=== PATIENT | male | born 1975 | race American Indian/Alaskan Native ===

== ENCOUNTER 2018-10-16 19:11 | Emergency (ER) | payer OTHER ==
[2018-10-16 19:33] VITALS: BP 155/89
--- NOTE | 2018-10-16 20:09 | Emergency Department Report ---
Chief Complaint: Abdominal Pain Stated Complaint: HEADACHE/DIZZINESS Time Seen by Provider: 10/16/18 20:05 - HPI History of Present Illness: pt presents with left flank pain that started today describes as a sharp pain he has associated lightheadedness no N/V, no urinary sx never had a kidney stone previously no PMHx no medications (+)smoker non drinker no drug use - Exam Vital Signs: Vital Signs 10/16/18 19:25 Temperature 98.2 F Pulse Rate 80 Respiratory 18 Rate Blood Pressure 155/89 O2 Sat by Pulse 97 Oximetry MSE screening note: Focused history and physical exam performed. Due to findings the following was ordered: UA, labs, Ct abd/pelvis without contrast ED Disposition for MSE Condition: Stable
[2018-10-16 22:10] LABS: Hematocrit 40.6 % (35.5-45.6); Hemoglobin 14.1 gm/dl (11.8-15.2); Mean Corpuscular HGB Conc 35 % (32-34); Mean Corpuscular Volume 79 fl (84-94); Platelet Count 377 K/mm3 (140-440); Red Blood Count 5.13 M/mm3 (3.65-5.03)
[2018-10-16 22:11] LABS: Eosinophils % (Auto) 2.5 % (0.0-4.3); Monocytes % (Auto) 9.9 % (0.0-7.3)
[2018-10-16 22:12] LABS: Basophils # (Auto) 0.1 K/mm3 (0.0-0.1); Basophils % (Auto) 0.1 % (0.0-1.8); Eosinophils # (Auto) 0.2 K/mm3 (0.0-0.4); Lymphocytes # (Auto) 2.9 K/mm3 (1.2-5.4); Monocytes # (Auto) 0.8 K/mm3 (0.0-0.8)
--- NOTE | 2018-10-16 22:48 | Cat Scan Report ---
PROCEDURE: CT ABDOMEN PELVIS WO CON TECHNIQUE: Computerized axial tomography of the abdomen and pelvis was performed without intravenous contrast. This study is performed without intravascular contrast material and its sensitivity for ab dominal and pelvic pathology, including neoplasms, inflammation, abscess, free fluid, thrombosis, art erial dissection and infarction, is reduced compared with a contrast enhanced study. CT DOSE LENGTH PRODUCT: mGycm HISTORY: right flank pain COMPARISONS: None . FINDINGS: Liver, spleen, pancreas and adrenal glands are within normal limits. Bilateral kidneys demonstrate no rmal size without calculi or hydronephrosis. A small exophytic cyst is noted involving the upper port ion left kidney measuring 0.9 cm. Urinary bladder is partially filled with normal outlines. Aorta is of normal caliber. There is no free fluid or free air. Gallbladder is contracted. Small bowel loops a re within normal limits. Multiple colonic diverticula are noted without evidence of diverticulitis. A ppendix is normal. Vertebral height is normal. IMPRESSION: No acute intra-abdominal or pelvic pathology. A small cystic lesion of left kidney cannot be further evaluated on this noncontrast study. This document is electronically signed by Jose Kim MD., October 16 2018 10:46:13 PM ET
[2018-10-16 23:04] LABS: Bilirubin,Urine Negative (Negative); Blood,Urine Negative (Negative); Color,Urine Yellow (Yellow)
[2018-10-16 23:05] LABS: Protein,Urine <15 mg/dL mg/dL (Negative); WBC,Urine < 1.0 /HPF (0.0-6.0)
[2018-10-16 23:06] LABS: Mucus,Urine Few /HPF
[2018-10-17] MEDS ORDERED: TORADOL IV ONE (01:20)
[2018-10-17] MEDS ORDERED: ZOFRAN IV ONE (01:20)
--- NOTE | 2018-10-17 02:34 | Emergency Department Report ---
ED Abdominal Pain HPI - General Chief Complaint: Abdominal Pain Stated Complaint: HEADACHE/DIZZINESS Time Seen by Provider: 10/16/18 20:05 Source: patient Mode of arrival: Ambulatory Limitations: No Limitations - History of Present Illness Initial Comments: pt presents with left flank pain that started todaym describes as a sharp pain , he has associated lightheadedness, no N/V, no urinary sx , never had a kidney stone previously , no PMHx, no medications , (+)smoker, non drinker, no drug use MD Complaint: flank pain Onset/Timin -: days(s) Location: R flank Radiation: none Migration to: R flank Severity: moderate Severity scale (0 -10): 9 Quality: sharp Consistency: constant Improves With: nothing Worsens With: nothing Associated Symptoms: denies: nausea, vomiting, diarrhea, fever, chills, constipation, dysuria - Related Data Previous Rx's Medication Instructions Recorded Last Taken Type traMADol [Ultram] 50 mg PO Q6HR PRN #12 tablet 10/17/18 Unknown Rx Allergies Allergy/AdvReac Type Severity Reaction Status Date / Time No Known Allergies Allergy Unverified 10/16/18 19:33 ED Review of Systems ROS: Stated complaint: HEADACHE/DIZZINESS Other details as noted in HPI Constitutional: denies: chills, fever Eyes: denies: eye pain, eye discharge, vision change ENT: denies: ear pain, throat pain Respiratory: denies: cough, shortness of breath, wheezing Cardiovascular: denies: chest pain, palpitations Endocrine: no symptoms reported Gastrointestinal: abdominal pain (right flank pain ). denies: nausea, vomiting, diarrhea, constipation, hematemesis, hematochezia Genitourinary: denies: urgency, dysuria, frequency, hematuria, discharge, testicular pain, testicular mass Musculoskeletal: denies: back pain (right flank ), joint swelling, arthralgia Skin: denies: rash, lesions Neurological: denies: headache, weakness, paresthesias Psychiatric: denies: anxiety, depression Hematological/Lymphatic: denies: easy bleeding, easy bruising ED Past Medical Hx - Past Medical History Previous Medical History?: Yes - Surgical History Past Surgical History?: Yes - Social History Smoking Status: Current Every Day Smoker Substance Use Type: None - Medications Home Medications: Home Medications Medication Instructions Recorded Confirmed Last Taken Type traMADol [Ultram] 50 mg PO Q6HR PRN #12 tablet 10/17/18 Unknown Rx ED Physical Exam - General Limitations: No Limitations General appearance: alert, in no apparent distress - Head Head exam: Present: atraumatic, normocephalic - Eye Eye exam: Present: normal appearance - ENT ENT exam: Present: mucous membranes moist - Neck Neck exam: Present: normal inspection, full ROM - Respiratory Respiratory exam: Present: normal lung sounds bilaterally. Absent: respiratory distress, wheezes, stridor, chest wall tenderness - Cardiovascular Cardiovascular Exam: Present: regular rate, normal rhythm, normal heart sounds. Absent: systolic murmur, diastolic murmur, rubs, gallop - GI/Abdominal GI/Abdominal exam: Present: soft, normal bowel sounds. Absent: distended, tenderness, guarding, rebound, rigid, bruit, hernia - Rectal Rectal exam: Present: deferred - Extremities Exam Extremities exam: Present: normal inspection, full ROM, normal capillary refill. Absent: tenderness - Back Exam Back exam: Present: full ROM, tenderness, CVA tenderness (R). Absent: CVA tenderness (L), muscle spasm, paraspinal tenderness, rash noted - Neurological Exam Neurological exam: Present: alert, oriented X3, CN II-XII intact, normal gait - Psychiatric Psychiatric exam: Present: normal affect, normal mood - Skin Skin exam: Present: warm, dry, intact, normal color. Absent: rash ED Course Vital Signs 10/16/18 10/17/18 10/17/18 19:25 02:06 02:07 Temperature 98.2 F Pulse Rate 80 Respiratory 18 16 16 Rate Blood Pressure 155/89 O2 Sat by Pulse 97 98 Oximetry ED Medical Decision Making - Lab Data Result diagrams: 10/16/18 20:26 10/16/18 20:26 Labs 10/16/18 10/16/18 20:26 Unknown WBC 7.7 RBC 5.13 H Hgb 14.1 Hct 40.6 MCV 79 L MCH 27 L MCHC 35 H RDW 15.0 Plt Count 377 Lymph % (Auto) 37.0 H Banner % (Auto) 9.9 H Eos % (Auto) 2.5 Baso % (Auto) 0.1 Lymph # 2.9 Banner # 0.8 Eos # 0.2 Baso # 0.1 Seg Neutrophils % 49.5 Seg Neutrophils # 3.8 Urine Color Yellow Urine Turbidity Clear Urine pH 6.0 Ur Specific Rule 1.023 Urine Protein <15 mg/dl Urine Glucose (UA) Negative Urine Ketones Negative Urine Blood Negative Urine Nitrite Negative Urine Bilirubin Negative Urine Urobilinogen 4.0 Ur Leukocyte Esterase Negative Urine WBC (Auto) < 1.0 Urine RBC (Auto) 0.0 Urine Mucus Few - Radiology Data Radiology results: report reviewed, image reviewed Findings [facility] [address] [place] [address] Cat Scan Report Signed Patient: MIKAL ABUDL MR#: [id number] : 1975 Acct:[id number] Age/Sex: 43 / M ADM Date: 10/16/18 Loc: ED Attending Dr: Ordering Physician: HERNANDEZ FRANKS Date of Service: 10/16/18 Procedure(s): CT abdomen pelvis wo con Accession Number(s): [id number] cc: HERNANDEZ FRANKS PROCEDURE: CT ABDOMEN PELVIS WO CON TECHNIQUE: Computerized axial tomography of the abdomen and pelvis was performed without intravenous contrast. This study is performed without intravascular contrast material and its sensitivity for abdominal and pelvic pathology, including neoplasms, inflammation, abscess, free fluid, thrombosis, arterial dissection and infarction, is reduced compared with a contrast enhanced study. CT DOSE LENGTH PRODUCT: mGycm HISTORY: right flank pain COMPARISONS: None . FINDINGS: Liver, spleen, pancreas and adrenal glands are within normal limits. Bilateral kidneys demonstrate normal size without calculi or hydronephrosis. A small exophytic cyst is noted involving the upper portion left kidney measuring 0.9 cm. Urinary bladder is partially filled with normal outlines. Aorta is of normal caliber. There is no free fluid or free air. Gallbladder is contracted. Small bowel loops are within normal limits. Multiple colonic diverticula are noted without evidence of diverticulitis. Appendix is normal. Vertebral height is normal. IMPRESSION: No acute intra-abdominal or pelvic pathology. A small cystic lesion of left kidney cannot be further evaluated on this noncontrast study. This document is electronically signed by Madi Kim MD., October 16 2018 10:46:13 PM ET Transcribed By: [facility] [place] Dictated By: MADI KIM Electronically Authenticated By: MADI KIM Signed Date/Time: 10/16/18 2248 DD/ 50 TD/TT: 10/16/182150 - Medical Decision Making CT abdomen shows positive for left renal cyst moderate diverticula without diverticulitis . Pain is reduced with medication given in ED plan NSAIDs follow up with PCP N2 to 3 days patient refers outside community clinic for PCP affiliation follow up with nephrology for cystoscopy evaluation patient verbalized agreement and understanding of the same pain is reduced to 2/10 at this time patient is stable condition Critical care attestation.: If time is entered above; I have spent that time in minutes in the direct care of this critically ill patient, excluding procedure time. ED Disposition Clinical Impression: Renal cyst Abdominal pain Qualifiers: Abdominal location: right lower quadrant Qualified Code(s): R10.31 - Right lower quadrant pain Disposition: TO HOME OR SELFCARE Is pt being admited?: No Does the pt Need Aspirin: No Condition: Stable Instructions: Flank Pain (ED), Abdominal Pain (ED) Prescriptions: traMADol [Ultram] 50 mg PO Q6HR PRN #12 tablet PRN Reason: Pain Referrals: JUDY SWAIN MD [Staff Physician] - 3-5 Days BRYANT CARTER MD [Staff Physician] - 3-5 Days Forms: Work/School Release Form(ED) Time of Disposition: 03:22
[2018-10-17 03:13] LABS: BUN/Creatinine Ratio 10; Blood Urea Nitrogen 13 mg/dL (9-20); Calcium 9.4 mg/dL (8.4-10.2)
[2018-10-17 03:14] LABS: Alanine Aminotransferase 18 units/L (7-56); Albumin 3.9 g/dL (3.9-5)
[2018-10-17 04:46] LABS: Hemolysis Index 35
== END 2018-10-17 04:00 | disposition home or self-care (01) ==
LOC: ED 19:11
DX: N28.1 Cyst of kidney, acquired (principal); F17.200 Nicotine dependence, unspecified, uncomplicated
CPT/HCPCS: 36415; 74176; 80053; 81001; 83690; 85025; 96374; 96375; 99284; J1885; J2405

== ENCOUNTER 2018-10-25 12:42 | Emergency (ER) | payer OTHER ==
--- NOTE | 2018-10-25 13:16 | Emergency Department Report ---
Chief Complaint: Back Pain/Injury Stated Complaint: R SIDE PAIN/HEADACHE Time Seen by Provider: 10/25/18 13:14 - HPI History of Present Illness: r side pain here 2 days ago had full work up rx tramadol mse completed MSE screening note: Focused history and physical exam performed. Due to findings the following was ordered: ED Disposition for MSE Condition: Stable
[2018-10-25 14:34] LABS: Bilirubin,Urine NEG (Negative); Blood,Urine NEG (Negative); Color,Urine Yellow (Yellow); Mucus,Urine FEW /HPF; Protein,Urine <15 mg/dL mg/dL (Negative); Urobilinogen,Urine < 2.0 mg/dL (<2.0)
--- NOTE | 2018-10-25 17:31 | Emergency Department Report ---
ED Back Pain/Injury HPI - General Chief Complaint: Back Pain/Injury Stated Complaint: R SIDE PAIN/HEADACHE Time Seen by Provider: 10/25/18 13:14 Source: patient Limitations: No Limitations - History of Present Illness Initial Comments: This is a 43-year-old -[place] female presents with right flank pain and a headache for 2 weeks. Patient states he was seen in this emergency room last week and diagnosed with a cyst on the left kidney and polyp and stomach. Patient's spouse states they called and made an appointment with dna sequencing associate for November 03. Patient states pain increased today. States pain was controlled with 3 days off and he was able to actually take medication. Patient states tramadol makes him drowsy while at work and unable to take daily. He denies abdominal pain, dysuria, urinary frequency, urgency, penile discharge, or testicular swelling. MD Complaint: back pain Onset/Timin -: week(s) Similar Symptoms Previously: Yes Place: home Radiation: none Severity: moderate Severity scale (0 -10): 7 Quality: aching Consistency: intermittent Improves With: none Worsens With: movement Context: unknown Associated Symptoms: denies: numbness, difficulty urinating, incontinence, fever/chills Treatments Prior to Arrival: prescription analgesics - Related Data Previous Rx's Medication Instructions Recorded Last Taken Type traMADol [Ultram] 50 mg PO Q6HR PRN #12 tablet 10/17/18 Unknown Rx Acetaminophen [Tylenol 8 Hour] 650 mg PO TID PRN #20 tablet.er 10/25/18 Unknown Rx traMADol [Ultram 50 MG tab] 50 mg PO Q6HR PRN #12 tablet 10/25/18 Unknown Rx Allergies Allergy/AdvReac Type Severity Reaction Status Date / Time No Known Allergies Allergy Unverified 10/16/18 19:33 ED Review of Systems ROS: Stated complaint: R SIDE PAIN/HEADACHE Other details as noted in HPI Constitutional: denies: chills, fever Respiratory: denies: cough, shortness of breath, wheezing Cardiovascular: denies: chest pain, palpitations Gastrointestinal: denies: abdominal pain, nausea, diarrhea Musculoskeletal: back pain (right flank pain). denies: joint swelling, arthralgia Skin: denies: rash, lesions Neurological: denies: headache, weakness, paresthesias Psychiatric: denies: anxiety, depression ED Back Pain Physical Exam - Exam General: Vital signs noted. No distress. Alert and acting appropriately. Back/Abdomen: Yes Flank Tenderness (right), No Abdominal Tenderness, No Perithoracic Tenderness, No Perilumbar Tenderness, No Sacroiliac Tenderness, No Straight Leg Raise Pain Neuro: Yes Normal Sensation, Yes Normal DTR's, Yes Normal Gait, No Motor Weakness ED Course Vital Signs 10/25/18 13:15 Temperature 98.5 F Pulse Rate 63 Respiratory 20 Rate Blood Pressure 168/86 O2 Sat by Pulse 99 Oximetry Ed Back Pain Tests - Tests Tests: Normal UA ED Medical Decision Making - Lab Data Lab Results 10/25/18 Range/Units 13:50 Urine Color Yellow (Yellow) Urine Turbidity Clear (Clear) Urine pH 5.0 (5.0-7.0) Ur Specific [place] 1.018 (1.003-1.030) Urine Protein <15 mg/dl (Negative) mg/dL Urine Glucose (UA) Neg (Negative) mg/dL Urine Ketones Neg (Negative) mg/dL Urine Blood Neg (Negative) Urine Nitrite Neg (Negative) Urine Bilirubin Neg (Negative) Urine Urobilinogen < 2.0 (<2.0) mg/dL Ur Leukocyte Esterase Neg (Negative) Urine WBC (Auto) 2.0 (0.0-6.0) /HPF Urine RBC (Auto) 1.0 (0.0-6.0) /HPF Urine Mucus Few /HPF - Medical Decision Making Patient examined by this provider. Patient is non-toxic appearing and stable. Vitals are stable. Obtained urinalysis and unremarkable. Patient seen in this ER last week with similar symptoms. He had a full work and CT findings of No acute intra-abdominal or pelvic pathology. A small cystic lesion of left kidney cannot be further evaluated on this noncontrast study. Labs unremarkable. Referral to nephrology. Patient have appointment with neurologist on 2018. He is requesting pain control until appointment. Start Tramadol and ibuprofen for pain. Critical care attestation.: If time is entered above; I have spent that time in minutes in the direct care of this critically ill patient, excluding procedure time. ED Disposition Clinical Impression: Renal cyst, Right flank pain Disposition: - TO HOME OR SELFCARE Is pt being admited?: No Does the pt Need Aspirin: No Condition: Stable Instructions: Flank Pain (ED) Additional Instructions: Follow up with nephrology on scheduled appointment 11/03/18. Prescriptions: Acetaminophen [Tylenol 8 Hour] 650 mg PO TID PRN #20 tablet.er PRN Reason: Pain, Moderate (4-6) traMADol [Ultram 50 MG tab] 50 mg PO Q6HR PRN #12 tablet PRN Reason: Pain Referrals: PRIMARY CARE, [Primary Care Provider] - 3-5 Days BRYANT CARTER MD [Staff Physician] - 3-5 Days Forms: Work/School Release Form(ED) Time of Disposition: 17:58
[2018-10-25 18:11] VITALS: BP 133/81
== END 2018-10-25 18:11 | disposition home or self-care (01) ==
LOC: ED 12:42
DX: N20.0 Calculus of kidney (principal)
CPT/HCPCS: 81001; 99283